=== PATIENT | female | born 1980 | race Caucasian/White ===

== ENCOUNTER 2018-04-24 | Inpatient (IN) | payer OTHER ==
[2018-04-24] MEDS ORDERED: ACETAMINOPHEN 325 MG TAB PO (01:30)
[2018-04-24] MEDS: PANTOPRAZOLE (EC) 40 MG TAB PO (05:24)
[2018-04-24 06:29] LABS: T4 (THYROXINE) 5.7 ug/dl (5.5-11.0)
[2018-04-24 06:43] LABS: TRIIODOTHYRONINE 0.73 ng/ml (0.97-1.69)
[2018-04-25] MEDS: PANTOPRAZOLE (EC) 40 MG TAB PO (05:42)
[2018-04-26 22:37] LABS: TSH RECEPTOR ANTIBODY <1 (< OR = 16)
== END 2018-04-25 17:05 | disposition home or self-care (01) | DRG 566 ==
LOC: MS1
DX: M21.371 Foot drop, right foot (principal); E03.9 Hypothyroidism, unspecified; F17.200 Nicotine dependence, unspecified, uncomplicated
CPT/HCPCS: 72158; 84235; 84436; 84479; 84480; 97161